=== PATIENT | female | born 1975 | race Caucasian/White ===

== ENCOUNTER → 2020-08-29 | Outpatient (CLI) | payer OTHER | LOC: MC.RAD 08:00 | DX: Z12.31 Encounter for screening mammogram for malignant neoplasm of breast (principal) ==

== ENCOUNTER 2022-04-26 07:35 | Day surgery (SDC) | payer OTHER ==
[~2022-04-26] VITALS: Ht 177.8 cm; Wt 103.4 kg
[2022-04-26] MEDS ORDERED: ZYRTEC 10MG10 MG PO (08:13)
[2022-04-26 08:20] VITALS: BP 115/71; PULSE 70; TEMP 97.3
[2022-04-26 09:20] VITALS: BP 97/48; PULSE 60; TEMP 96.7
--- NOTE | 2022-04-26 09:20 | NUR ---
Pt returned to [facility]. Spouse present in room. Pt denies wanting to eat or drink at this time. Given warm blanket and reclined in chair. Call light in reach.
[2022-04-26 09:35] VITALS: BP 108/53; PULSE 59
[2022-04-26 09:50] VITALS: BP 112/54; PULSE 59
--- NOTE | 2022-04-26 09:56 | NUR ---
VS remain stable-see flowsheet. Pt did tolerate juice. Dr Avilez in to visit with pt post procedure. IV removed, pressure dressing applied. Dc teaching completed, pt and pts spouse verbalized understanding. Pt dressed and taken via wheelchair to private vehicle for dc home with spouse to drive.
== END 2022-04-26 09:56 | disposition home or self-care (01) ==
LOC: SDCO 07:35
DX: Z12.11 Encounter for screening for malignant neoplasm of colon (principal); D12.3 Benign neoplasm of transverse colon; D12.4 Benign neoplasm of descending colon; K64.4 Residual hemorrhoidal skin tags
CPT/HCPCS: J2704; J7030

== ENCOUNTER → 2022-04-30 | Outpatient (CLI) | payer OTHER ==
[~2022-04-30] MED LIST: ZYRTEC 10MG10 MG PO
== END ==
LOC: MC.RAD 07:34
DX: Z12.31 Encounter for screening mammogram for malignant neoplasm of breast (principal)

== ENCOUNTER → 2022-05-07 | Outpatient (CLI) | payer OTHER | LOC: MC.RAD 08:00 | DX: N63.15 Unspecified lump in the right breast, overlapping quadrants (principal) ==

== ENCOUNTER → 2022-11-07 | Outpatient (CLI) | payer OTHER | LOC: MC.RAD 09:58 | DX: N63.10 Unspecified lump in the right breast, unspecified quadrant (principal) ==